=== PATIENT | male | born 1970 | race Caucasian/White ===

== ENCOUNTER 2016-12-15 21:40 | Emergency (ER) | payer BC, OTHER ==
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
[2016-12-15 22:09] VITALS: BP 132/75; PULSE 78; RESP 20; TEMP 98.5
== END 2016-12-15 22:25 | disposition home or self-care (01) ==
LOC: EC 21:40
DX: S61.211A Laceration without foreign body of left index finger without damage to nail, initial encounter (principal); Z86.73 Personal history of transient ischemic attack (TIA), and cerebral infarction without residual deficits; Z79.01 Long term (current) use of anticoagulants; W26.8XXA Contact with other sharp object(s), not elsewhere classified, initial encounter; Y99.0 Civilian activity done for income or pay
CPT/HCPCS: 12001; 99282

== ENCOUNTER → 2017-05-31 | Outpatient (CLI) | payer BC, OTHER ==
--- NOTE | 2017-05-31 13:40 | CONS ---
CONSULTATION DATE OF SERVICE: 05/31/2017 47-year-old gentleman has been evaluated in the sleep center for possible obstructive sleep apnea-hypopnea syndrome. HISTORY OF PRESENT ILLNESS SLEEP-WAKE EVALUATION: SLEEP SCHEDULE: Patient usual sleep schedule from patient working swing-shift. Subsequently, his sleep schedule depends from his work time. Usually he sleeps for around 8 hours. For the last two weeks he sleeps for about 8:00 a.m. until 4:00 pm. FALLING ASLEEP: Sometimes he has problem with falling asleep. Has TV set in bedroom. DURING SLEEP: He snores, has episodes of stopped breathing. During the sleep grinding teeth, he wakes up from sleep several times with 1 episode of nocturia. DURING THE DAY/SLEEP WAKE EVALUATION: After sleep patient wakes up and feels tired, has difficulties to pay attention, falling asleep, has problems with memory, concentration. Lane Sleepiness Scale is 7. PAST MEDICAL HISTORY: Positive for hypertension, episodes of atrial fibrillation, stroke in August 2016 with right-sided weakness. Several episodes of nasal fracture and hyperlipidemia. PAST SURGICAL HISTORY: Brain surgery after the stroke in August 2016, right orbital surgery after the fracture of the face. Ganglion cyst removed and infraorbital surgery after fracture in 2007. MEDICATIONS: Eliquis, Atorvastatin, baby aspirin and amlodipine. SOCIAL HISTORY: Negative for smoking. Presently, patient does not use any alcohol. FAMILY HISTORY: Hypertension, heart problems, stroke, snoring, cancer, during sleep. REVIEW OF SYMPTOMS: Awakenings from sleep, snoring, sleepiness. PHYSICAL EXAM: GENERAL : A 47-year-old gentleman without distress. BP 158/89, HR 76, RR 16, height 6 inches 0, weight 291, BMI 39.4, temperature 97.6, oxygen saturation room air 96%. The oropharynx moderately low position of soft palate. Nose isometric. Some restriction of nasal breathing forcibly. Nasal septum deviation. Cough. ABDOMEN: Obese. Neck Supple, no JVD. Thyroid is not palpable. LUNGS Clear to percussion and to auscultation. Good air exchange. No wheezing or rhonchi. HEART S1, S2 regular. No murmurs, gallops, or rubs. ABDOMEN : Obese. Soft and nontender. Bowel sounds are present. No organomegaly appreciated. EXTREMITIES No clubbing or cyanosis. 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 Cranial nerves 2 to 7 intact. There is no fasciculation or atrophy. noted. No focal deficits observed. IMPRESSION: 1. Snoring, episodes of stopped breathing during the sleep. Gasping for air, choking, moderately low position of soft palate. Restriction of nasal breathing. Wide neck 19 inches in circumference, obstructive sleep apnea-hypopnea syndrome. 2. Obesity BMI 39.43. 3. Hypertension. 4. History of atrial fibrillation. 5. History of stroke in August 2016 with left side weakness without residual deficits at the present time. 6. Status post several nasal fractures. 7. Nasal septum deviation. 8. Status post brain surgery at the moment of the stroke. 9. Hyperlipidemia. 10.Status post orbital surgery on the right side after the face fracture in 2007. 11.Status post surgery for ganglion cyst. PLAN: 1. Polysomnography for evaluation of patient's breathing during sleep. 2. CPAP/BiPAP titration if sleep study confirms obstructive sleep apnea-hypopnea syndrome. 3. Preferable position during sleep on the side. 4. No driving if patient feels any sleepiness. Patient is aware of civil and criminal liability for unsafe driving. 5. I will see patient for follow up visit to explain results of testing and following plan. Otoniel King MD, PhD, FAASM Diplomat of [employer] [facility] [place] MMLOBOL / SCARN: [id number] /
== END | disposition home or self-care (01) ==
LOC: SLEEP 11:36
PROVIDERS: ATTEND Internal Medicine
DX: G47.33 Obstructive sleep apnea (adult) (pediatric) (principal); E66.9 Obesity, unspecified; I10 Essential (primary) hypertension; J34.2 Deviated nasal septum; E78.5 Hyperlipidemia, unspecified; Z98.890 Other specified postprocedural states; Z86.69 Personal history of other diseases of the nervous system and sense organs; Z86.79 Personal history of other diseases of the circulatory system; Z68.39 Body mass index [BMI] 39.0-39.9, adult; Z79.01 Long term (current) use of anticoagulants; Z79.899 Other long term (current) drug therapy; Z79.82 Long term (current) use of aspirin
CPT/HCPCS: 99211

== ENCOUNTER 2018-01-19 11:30 | Emergency (ER) | payer BC, OTHER ==
[2018-01-19 11:43] VITALS: RESP 20; TEMP 98.4
[2018-01-19] MEDS ORDERED: DIPH,PERTUS(ACELL)TETVAC-LF 0.5 ML VIAL IM ONE (12:01)
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
--- NOTE | 2018-01-19 12:53 | XR ---
EXAMINATION TYPE: XR hand complete RT , 3 VIEWS DATE OF EXAM ORDERED: 01/19/2018 HISTORY: Pain. COMPARISON: None. FINDINGS: No fracture, dislocation or other acute osseous lesion is seen. IMPRESSION: NO ACUTE OSSEOUS LESION.
[2018-01-19 13:38] VITALS: BP 128/70; PULSE 65
== END 2018-01-19 13:38 | disposition home or self-care (01) ==
LOC: EC 11:30
DX: S61.212A Laceration without foreign body of right middle finger without damage to nail, initial encounter (principal); S60.221A Contusion of right hand, initial encounter; Z79.01 Long term (current) use of anticoagulants; Z86.73 Personal history of transient ischemic attack (TIA), and cerebral infarction without residual deficits; Z86.711 Personal history of pulmonary embolism; Z23 Encounter for immunization; W45.8XXA Other foreign body or object entering through skin, initial encounter; Y92.009 Unspecified place in unspecified non-institutional (private) residence as the place of occurrence of the external cause
CPT/HCPCS: 90471; 90715; 99283